=== PATIENT | female | born 1990 ===

== ENCOUNTER 2025-07-17 16:56 | Emergency (ER) | payer OTHER, SELFPAY ==
--- NOTE | ~2025-07-17 | CT_ITS ---
CLINICAL HISTORY: Suprapubic cellulitis versus abscess CT abdomen and pelvis with contrast Comparison: CT - CT ABDOMEN PELVIS W IV CON - 07/18/25 01:58 EDT Findings: No consolidation or effusion. Cardiomegaly. 2 mm nonobstructing left superior and inferior renal stones. Gallbladder and solid organs otherwise unremarkable. No bowel obstruction, pneumoperitoneum, or pneumatosis. Mesenteric vessels patent. Normal appendix. Uterus and ovaries unremarkable. The bones are intact. The suprapubic pannus is indurated with skin thickening. No fluid collections. IMPRESSION: 1. Probable cellulitis involving the suprapubic pannus. No abscess. 2. Nonobstructing left renal stones. This document has been electronically signed by: Chuck Sheikh MD on 07/18/2025 03:11:26
[2025-07-17 17:32] VITALS: BP 120/61; PULSE 106; RESP 18; TEMP 37.3; O2SAT 97; BMI 67.7
--- NOTE | 2025-07-17 17:34 | ED_ITS ---
HPI - Skin/Abscess/Foreign Bdy General Chief complaint: Skin/Abscess/Foreign Body Stated complaint: Swelling in groin area Time Seen by Provider: 07/17/25 22:02 Source: patient, RN notes reviewed and instructor looping Mode of arrival: ambulatory Limitations: language barrier History of Present Illness ED Provider: Jagdish HPI narrative: 34-year-old female with a past medical history significant for morbid obesity presents for evaluation of pain to her lower abdominal/suprapubic region.. The patient reports that she had subjective fevers 2 days ago and then developed pain, redness and increased warmth to her suprapubic region yesterday. She reports that she had had chronic excess skin in the area but it has a become painful over the last 24 hours She reports that she is not a diabetic No other complaints or concerns at this time She reports that she has no pain or swelling extending into her groin Related Data Previous Rx's ?Medication ?Instructions ?Recorded cephalexin 500 mg capsule 500 mg PO QID #39 caps 07/18 doxycycline hyclate 100 mg capsule 100 mg PO BID #19 c aps 07/18/25 Allergies Allergy/AdvReac Type Severity Reaction Status Date / Time No Known Allergies Allergy Verified 07/17/25 17:37 Review of Systems 2 Constitutional: Constitutional: Denies body ache(s), Denies chills, Reports fever(s) and Denies headache(s) ENT: Denies vertigo and Denies headache(s) Cardiovascular: Cardiovascular: Denies chest pain and Denies dyspnea on exertion Respiratory: Respiratory: Denies cough and Denies dyspnea on exertion Gastrointestinal: Gastrointestinal: Reports abdominal pain, Denies nausea and Denies vomiting Integumentary/Breasts: Skin/Breast: Reports erythema, Reports skin pain, Reports skin swelling and Denies wounds Neurologic: Denies vertigo and Denies headache(s) Psychiatric: Psychiatric: Denies anxiety PMFSH Social History Social History Advance Directives: No Advance Directives Information Provided: No Physical Exam 2 Vital Signs: Vital Signs: Last Vital Signs Temp 99.2 F 07/18/25 02:05 Pulse 88 07/18/25 02:05 Resp 16 07/18/25 02:05 BP 107/84 07/18/25 02:05 Pulse Ox 99 07/18/25 02:05 O2 Del Method Room Air 07/18/25 02:05 BMI result Body Mass Index 67.7 Const: General: healthy appearing, comfortable, no acute distress, alert and awake Nutritional Appearance: well nourished Orientation/consciousness: p atient oriented x3 HEENT: Head: Yes normocephalic and Yes atraumatic Eyes: Eyelids: Yes eyelids normal Conjunctivae: conjunctivae normal S clerae: sclerae normal Corneas: corneas normal Pupils: Equal, round and reactive pupils present EOM: EOMs intact bilaterally Neck: Neck: Yes full ROM Resp: Effort & Inspection: normal respiratory effort, able to speak in complete sentences and not labored GI: Inspection: No distended Palpation (GI): Soft to palpation, not firm, nontender, no guarding and not rigid Skin: Other: There is a large area of erythema to the pain is in his suprapubic region, about 12 x 8 cm. This area is increased warmth, tenderness to palpation, no fluctuance noted. No purulent drainage or open wounds. General skin exam: elasticity normal Neuro: General: patient oriented x3 Cranial nerves: Yes Equal, round and reactive pupils present and Yes Bilaterally intact EOM present Cognition (Neuro): normal cognition Course Course Course Narrative: This is an RME: Additional HPI, ROS, PE not included below will be deferred to primary provider. RME assessment and note performed by: Kaya Ledbetter PA-C This is a [id number], with no known medical problems, who presents to the ER with a complaint of ?abscess/skin infection in groin. She states that she noticed this several days ago. Endorsing subjective fevers last night. Unable to visualize this in triage due to limited privacy. Plan: Labs Reevaluation(s) Reevaluation #1: I Seema Rodriguez PA-C have personally accepted care of the patient and signed out pending imaging and final disposition CT abdomen and pelvis:MPRESSION: 1. Probable cellulitis involving the suprapubic pannus. No abscess. 2. Nonobstructing left renal stones. Medications Administered Discontinued Medications Generic Name Dose Route Start Last Admin Trade Name Freq PRN Reason Stop Dose Admin Iohexol 100 ml 07/18/25 02:13 07/18/25 02:14 Iohexol 350 Mg/Ml 100 Ml Infus..Btl IV 10/01/25 02:14 100 ml ONCE ONE Administration Medical Decision Making Medical Decision Making [facility] Narrative: 45-year-old morbidly obese female presents for evaluation of pain, skin swelling and redness with subjective fevers over last 2 days. She has a very large area that has apparently cellulitis. There was no fluctuance, but given the extent of the erythema and increased warmth in how rapidly his progress we will get a CT scan to evaluate for necrotizing fasciitis. The patient does not meet sepsis criteria. We will add blood cultures and a lactic acid Differential Diagnosis Differential Diagnoses: The differential diagnosis associated with the presentation includes Cellulitis Abscess Necrotizing fasciitis Dermatitis Lab Data [facility] Lab Attestation statement: I reviewed the patient's lab results. No leukocytosis or anemia. Normal platelet count. No significant electrolyte abnormalities warranting dimension. Random glucose of 139 07/17/25 18:56 07/17/25 18:56 Labs: Lab Results 07/17/25 07/17/25 Range/Units 18:56 23:26 WBC 8.9 (4.8-10.8) X10*3/uL RBC 4.42 (4.20-5.50) X10*6/uL Hgb 12.7 (12.0-16.0) g/dl Hct 37.6 (37.0-47.0) % MCV 85.1 (80.0-98.0) fL MCH 28.7 (27.0-33.0) pg MCHC 33.8 (31.0-35.0) g/dl RDW 14.9 (11.0-16.0) % Plt Count 288 (160-400) X10*3/uL MPV 10.6 (9.4-12.3) fL Immature Gran % (Auto) 0.2 (0.0-0.4) % Neut % (Auto) 66.5 (45-73) % Lymph % (Auto) 25.9 (20-40) % [place] % (Auto) 6.2 (2-11) % Eos % (Auto) 1.0 (0-4) % Baso % (Auto) 0.2 (0-2) % Lymph # (Auto) 2.3 (1.2-4.9) X10*3/uL [place] # (Auto) 0.6 (0.1-1.2) X10*3/uL Eos # (Auto) 0.1 (0.0-0.4) X10*3/uL Baso # (Auto) 0.0 (0.0-0.2) X10*3/uL Abs Immat Gran (auto) 0.02 (0.00-0.03) X10*3/uL Absolute Neuts (auto) 5.9 (2.0-8.3) x10*3/uL Absolute Nucleated RBC 0.000 (0.0-0.012) X10*3/uL Nucleated RBC % (auto) 0.0 (0.0-0.2) /100WBC ESR 55 H (0-20) MM/HR Sodium 142 (135-145) mmol/L Potassium 3.9 (3.3-5.1) mmol/L Chloride 115 H (96-108) mmol/L Carbon Dioxide 20 L (22-29) mmol/L Anion Gap 11 L (12-20) BUN 10 (9-16) mg/dL Creatinine 1.03 (0.5-1.4) mg/dL Estim Creat Clear Calc 120.3 Estimated GFR > 60 Random Glucose 139 H (60-115) mg/dL Lactic Acid 0.7 (0.5-2.0) mmol/L Calcium 9.1 (8.4-10.2) mg/dL Total Bilirubin 0.4 (0.0-1.0) mg/dL Direct Bilirubin 0.2 (0.0-0.5) mg/dL AST 21 (5-31) U/L ALT 25 (0-31) U/L Alkaline Phosphatase 81 (39-117) U/L C-Reactive Protein 15.73 H (< or = 0.50) mg/dL Total Protein 7.6 (6.5-8.0) g/dL Albumin 4.2 (3.5-5.0) g/dL Beta HCG, Quant < 2 mIU/mL Discharge Plan Discharge Clinical Impression: Cellulitis Patient Disposition: Home, Self-Care Instructions: Cellulitis (ED) Additional Instructions: The CT revealed that you have cellulitis over the abdomen. See home care instructions. Take the doxycycline as directed take the cephalexin as directed. Follow up with your primary care provider within 7-10 days for the infected area to be checked. Prescriptions: New doxycycline hyclate 100 mg capsule 100 mg PO BID Qty: 19 0RF cephalexin 500 mg capsule 500 mg PO QID Qty: 39 0RF Print Language: Japanese
[2025-07-17 19:01] LABS: Hematocrit 37.6 % (37.0-47.0); Hemoglobin 12.7 g/dl (12.0-16.0); Imm Gran Abs Auto 0.02 X10*3/uL (0.00-0.03); Imm Gran Pct Auto 0.2 % (0.0-0.4); Lymphocytes Absolute Auto 2.3 X10*3/uL (1.2-4.9); MANUAL DIFF FLAG NO; Mean Corpuscular HGB Conc 33.8 g/dl (31.0-35.0); Mean Corpuscular Hemoglobin 28.7 pg (27.0-33.0); Mean Corpuscular Volume 85.1 fL (80.0-98.0); NRBC Abs Auto 0.000 X10*3/uL (0.0-0.012); NRBC Pct Auto 0.0 /100WBC (0.0-0.2); Platelet Count 288 X10*3/uL (160-400); Red Blood Count 4.42 X10*6/uL (4.20-5.50); White Blood Count 8.9 X10*3/uL (4.8-10.8)
[2025-07-17 19:14] LABS: Alanine Aminotransferase 25 U/L (0-31); Albumin Level 4.2 g/dL (3.5-5.0); Alkaline Phosphatase 81 U/L (39-117); Anion Gap 11 (12-20); Aspartate Amino Transferase 21 U/L (5-31); Blood Urea Nitrogen 10 mg/dL (9-16); Calcium 9.1 mg/dL (8.4-10.2); Carbon Dioxide 20 mmol/L (22-29); Chloride 115 mmol/L (96-108); Creatinine Clr Calc Pharmacy 120.3; Estimated Glomerular Filt Rate > 60; Potassium 3.9 mmol/L (3.3-5.1); Sodium 142 mmol/L (135-145); Total Protein 7.6 g/dL (6.5-8.0)
--- OUTSIDE RECORDS SUMMARY | 2025-07-17 21:52 | XMS_ITS | Clinical Summary ---
Author Organization [employer] [facility] ity Address [address] [place] [address] Care Team Providers Care Geography Head Name Role Phone Unavailable Primary Care Provider Unavailabl e Social History Tobacco Use Types Packs/Day Years Used Date Smoking Tobacco: Never Assessed Comments Unknown Sex and Gender Information Value Date Recorded Sex Assigned at Not on file Legal Sex Female 8:17 PM EST Gender Identity Not on file Sexual Orientation Not on file Plan of Treatment Health Maintenance Due Date Last Done Comments DTaP,Tdap,and Td Vaccines (1 - Tdap) 2011 Hepatitis B Vaccines (1 of 3 - 19+ 3-dose series) 2011 Cervical Cancer Screening: P ap Smear 2013 HIV Screening 11/11/2023 Hepatitis C Screening 11/11/2023 Social Influencers of Health Screening 11/11/2023 Depression Screening 10/18/2024 COVID-19 Vaccine (2023-2 5 season) 2025 Influenza Vaccine (#1) 2025 HIB Vaccines Aged Out No longer eligi ble based on patient's age to complete this topic HPV Vaccines Aged Out No longer eligi ble based on patient's age to complete this topic Hepatitis A Vaccines Aged Out No long er eligible based on patient's age to complete this topic IPV Vaccines Aged Out No longer eligi ble based on patient's age to complete this topic MMR Vaccines Aged Out No longer eligi ble based on patient's age to complete this topic Meningococcal ACWY Vaccine Aged Out N o longer eligible based on patient's age to complete this topic Meningococcal B Vaccine Aged Out No l onger eligible based on patient's age to complete this topic Pneumococcal Vaccine: Pediat rics (0 to 5 Years) and At-Risk Patients (6 to 49 Years) Aged Out No longer eligible b ased on patient's age to complete this topic RSV Immunization Patients Un roldan 20 months Aged Out No longer eligible b ased on patient's age to complete this topic Varicella Vaccines Aged Out No longer eligible based on patient's age to complete this topic
--- NOTE | 2025-07-18 01:58 | PC.NURSE ---
20g IV line placed in RAC.
[2025-07-18 02:05] VITALS: BP 107/84; PULSE 88; RESP 16; TEMP 37.3; O2SAT 99
[2025-07-18] MEDS: iohexoL 350 MG/ML 100 ML INFUS..BTL IV (02:14)
[2025-07-18 03:35] VITALS: BP 107/84; PULSE 88; RESP 16; TEMP 37.3; O2SAT 99
== END 2025-07-18 03:36 | disposition home or self-care (01) ==
PROVIDERS: Physician Assistant; Physician Assistant Medical; Emergency Provider Emergency Medicine
DX: L03.311 Cellulitis of abdominal wall (principal); N20.0 Calculus of kidney
CPT/HCPCS: 36415; 74177; 80048; 80076; 83605; 84702; 85025; 85652; 86140; 87040; 99283; 99285; Q9967

== ENCOUNTER → 2025-07-18 | Outpatient (BNV) | payer OTHER, SELFPAY | PROVIDERS: Emergency Provider Emergency Medicine; Visit Provider Radiology Diagnostic Radiology | DX: N20.0 Calculus of kidney (principal) | CPT/HCPCS: 74177 ==